=== PATIENT | female | born 1955 | race Caucasian/White ===

== ENCOUNTER 2019-12-14 15:59 | Emergency (ER) | payer MEDICARE, SELFPAY ==
--- NOTE | ~2019-12-14 | XR_ITS ---
EXAMINATION: XR knee LT min 4V DATE: 12/14/2019 17:10 INDICATION: Left knee pain TECHNIQUE: Four views of the left knee were obtained. COMPARISON: None. FINDINGS: Alignment is normal. No fracture or osteochondral lesion. Joint spaces are normal with no e rosions. No joint effusion/synovitis. There is a soft tissue laceration overlying the patella. IMPRESSION: 1. Soft tissue laceration overlying the patella without underlying acute osseous abnormality. Reviewed, dictated and finalized at location A. IMPRESSION: 1. Soft tissue laceration overlying the patella without underlying acute osseou s abnormality.
--- NOTE | ~2019-12-14 | XR_ITS ---
EXAMINATION: XR finger 1st RT min 2V INDICATION: Right finger pain/dislocation TECHNIQUE: Three views of the right first finger are obtained. COMPARISON: None available FINDINGS: There is dorsal dislocation of the first distal phalanx with respect to the proximal phalan x. No associated fracture is identified. There is soft tissue swelling of the first finger. IMPRESSION: 1. Dorsal dislocation of the first distal phalanx with respect to the proximal phalanx. No fracture i dentified. Reviewed, dictated and finalized at location A. IMPRESSION: 1. Dorsal dislocation of the first distal phalanx with respect to the proximal phalanx. No fracture identified.
--- NOTE | ~2019-12-14 | XR_ITS ---
EXAMINATION: XR finger 1st RT min 2V INDICATION: Right interphalangeal joint dislocation post reduction TECHNIQUE: Two views of the right first finger are obtained. COMPARISON: 1701 hours FINDINGS: The previously described dorsal dislocation of the first distal phalanx with respect to the proximal phalanx has been reduced. Alignment is anatomic. A splint has been applied. No associated f racture is identified. There is soft tissue swelling of the finger. IMPRESSION: 1. Reduced and splinted first interphalangeal joint dislocation without fracture identified. Reviewed, dictated and finalized at location A. IMPRESSION: 1. Reduced and splinted first interphalangeal joint dislocation without fractur e identified.
--- NOTE | ~2019-12-14 | XR_ITS ---
EXAMINATION: XR elbow RT min 3V INDICATION: Right elbow pain TECHNIQUE: Four views of the right elbow were obtained. COMPARISON: 1702 hours FINDINGS: There is an acute, traumatic, oblique, closed fracture at the radial head neck junction. Th e fracture appears to extend to the articular surface. An elbow joint effusion is present. Bone align ment is normal. No additional fracture is identified. IMPRESSION: 1. Acute fracture of the radial head/neck. Reviewed, dictated and finalized at location A.
--- NOTE | ~2019-12-14 | XR_ITS ---
EXAMINATION: XR forearm RT 2V INDICATION: Right forearm pain TECHNIQUE: Two views of the right forearm are obtained. 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 There appears to be an oblique fractur e of the radial head/neck. Dorsal soft tissue swelling is seen at the wrist. IMPRESSION: 1. Possible fracture of the radial head/neck. Dedicated elbow radiographs are recommended. Reviewed, dictated and finalized at location A. IMPRESSION: 1. Possible fracture of the radial head/neck. Dedicated elbow radiographs are r ecommended.
[2019-12-14 16:00] VITALS: BP 141/92; PULSE 81; RESP 16; TEMP 36.4; O2SAT 98
--- NOTE | 2019-12-14 16:46 | PC.NURSE ---
VERBAL ORDER FROM KIRA CANO FOR XRAY OF INJURIES AND IVP TYLENOL.
[2019-12-14] MEDS: KETOROLAC 15 MG/ML VIAL (*BKC) IV PUSH (17:40)
--- NOTE | 2019-12-14 19:03 | PC.NURSE ---
SPOKE WITH KIRA CANO ABOUT PT ORDER FOR ZOSYN R/T ALLERGY OF PENICILLIN. SHE STATES TO GIVE HER TIME TO THINK ABOUT IT.
--- NOTE | 2019-12-14 19:46 | PC.NURSE ---
pt states she has taken Keflex before with no adverse reaction. KIRA Porter states it is fine to administer Ancef with hx of penicillin allergy. pt aware of s/s of adverse reaction. pt remains on monitor, will continue to monitor pt for baseline status changes. splint applied, wounds cleaned and dressed.
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
[2019-12-14] MEDS: traMADol HCL (*CRX) 50 MG TABLET PO (20:05)
--- NOTE | 2019-12-14 20:13 | PC.NURSE ---
knee immobilizer applied to L knee
[2019-12-14 20:29] VITALS: BP 131/64; PULSE 70; RESP 18; O2SAT 98
== END 2019-12-14 20:31 | disposition home or self-care (01) ==
PROVIDERS: Emergency Provider Emergency Medicine
DX: S63.124A Dislocation of interphalangeal joint of right thumb, initial encounter (principal); S81.012A Laceration without foreign body, left knee, initial encounter; S52.121A Displaced fracture of head of right radius, initial encounter for closed fracture; S52.131A Displaced fracture of neck of right radius, initial encounter for closed fracture; Z79.82 Long term (current) use of aspirin; Z96.643 Presence of artificial hip joint, bilateral; V18.4XXA Pedal cycle driver injured in noncollision transport accident in traffic accident, initial encounter; Y93.55 Activity, bike riding
CPT/HCPCS: 12004; 26770; 29105; 73080; 73090; 73140; 73564; 96365; 96367; 96375; 99285; A4565; A9270; J0131; J0690; J1885